=== PATIENT | female | born 1975 | race Caucasian/White ===

== ENCOUNTER 2021-09-21 01:10 | Day surgery (SDC) | payer MEDICARE, MEDICAID, SELFPAY ==
--- NOTE | 2021-09-01 14:56 | SUR.PREOP ---
called the patient and message left regarding calling [facility] to coordinate her prep for her upcoming procedure.
--- NOTE | 2021-09-03 15:54 | SUR.PREOP ---
Called patient left voicemail to have her call me to discuss her prep for her upcoming procedure.
[2021-09-04 14:33] VITALS: BMI 31.3
[2021-09-21 10:45] VITALS: BP 127/66; PULSE 69; RESP 18; TEMP 36.6; O2SAT 100; BMI 31.2
--- NOTE | 2021-09-21 10:54 | PM.HPGS ---
History of Present Illness History of Present Illness Consent: Risks, benefits, and alternatives have been discussed and questions answered. Patient agrees to proceed with procedure. Chief complaint: neoplasm screening Narrative: Ev Mireles is a 45 year old female referred for colon cancer screening. Review of Systems Review of Systems: All systems reviewed & are unremarkable except as noted in HPI and below PMFSH Social History Social History Smoking packs per day: 0.5 Smoking cigarettes per day: 10.0 Years smoked: 8 Smoking pack-years: 4.00 Smoking status: Former smoker Tobacco type: cigarettes Alcohol intake: current Substance use: current Substance use type: marijuana Other substance usage details: MEDICAL CARD-DAILY INHALATION Spiritual care concerns: No Meds Home Medications and Allergies Home Medications Medication Instructions Recorded Confirmed Type albuterol sulfate 90 mcg/actuation 2 inh inhalation PRN PRN Shortness 09/04/21 09/04/21 History aerosol inhaler (Ventolin HFA) Of Breath Allergies Allergy/AdvReac Type Severity Reaction Status Date / Time No Known Allergies Allergy Verified 09/21/21 10:44 Vital Signs Vital Signs - 24 hr 09/21/21 10:45 Temperature 36.6 C Pulse Rate 69 Respiratory Rate 18 Blood Pressure 127/66 Pulse Oximetry 100 Oxygen Delivery Room Air Exam Resp: Auscultation: clear to auscultation bilaterally Cardio: Rate: regular rate Rhythm: regular rhythm GI: GI Palp: Yes Soft to palpation and No Tenderness to palpation present (GI) Assessment and Plan Assessment and plan (1) Colon cancer screening: Code(s): Z12.11 - Encounter for screening for malignant neoplasm of colon Status: Acute Assessment and Plan: Colonoscopy with possible biopsy or polypectomy or cautery or injection of substances.
[2021-09-21] MEDS: LACTATED RINGERS 1,000 ML 150 ML IV CONT (10:58)
--- NOTE | 2021-09-21 11:13 | P.PNAN_ITS ---
Anes - Initial Pre Proc Eval Procedure: Operation Date: 09/21/21 11:30 Proposed Procedures p Screening Colonoscopy - Donis Mcmahon MD Date/Time: 09/21/21 11:13 Surgeon: Donis Mcmahon MD Pre Op Diagnosis: neoplasm screening Patient Data Age: 45 Gender: F Height: 1.65 m Weight: 85.1 kg Last Vital Signs Temp 97.8 F 09/21/21 10:45 Pulse 69 09/21/21 10:45 Resp 18 09/21/21 10:45 BP 127/66 09/21/21 10:45 Pulse Ox 100 09/21/21 10:45 O2 Del Method Room Air 09/21/21 10:45 Allergies Allergy/AdvReac Type Severity Reaction Status Date / Time No Known Allergies Allergy Verified 09/21/21 10:44 Home Medications Medication Instructions Recorded Confirmed Type albuterol sulfate 90 mcg/actuation 2 inh inhalation PRN PRN Shortness 09/04/21 09/04/21 History aerosol inhaler (Ventolin HFA) Of Breath Patient hx anesthesia problems: none Family hx anesthesia problems: none Results Review: All pre-operative results and documents have been reviewed as part of the pre- operative evaluation. [facility] Social History Social History Smoking packs per day: 0.5 Smoking cigarettes per day: 10.0 Years smoked: 8 Smoking pack-years: 4.00 Smoking status: Former smoker Tobacco type: cigarettes Alcohol intake: current Substance use: current Substance use type: marijuana Other substance usage details: MEDICAL CARD-DAILY INHALATION Spiritual care concerns: No Anes - Eval Final PreProcedure Day of Procedure 09/21/21 11:13 Patient weight: overweight Heart: regular rate and rhythm Lungs: clear to auscultation Airway: Mallampati scale class II Neurological: alert and oriented Last oral intake: >/= 8 hours ASA classification: II Emergent: no Anesthetic plan: proceed Anesthesia type and monitoring: general GIVS and standard monitoring Results Review: All pre-operative results and documents have been reviewed as part of the pre- operative evaluation. Informed Consent: The patient's anesthetic plan and its attendant risks and benefits were discussed with the patient/family/POA. Questions were solicited and answers provided to the satisfaction of the patient/family/POA.
[2021-09-21 12:23] VITALS: BP 123/72; PULSE 63; RESP 28; O2SAT 100
[2021-09-21 12:33] VITALS: BP 123/72; PULSE 63; RESP 21; O2SAT 100
[2021-09-21 12:43] VITALS: BP 149/77; PULSE 57; RESP 17; O2SAT 100
== END 2021-09-21 12:50 | disposition home or self-care (01) ==
PROVIDERS: PCP Family Medicine; Visit Provider Internal Medicine Gastroenterology
PROC: 0DJD8ZZ Inspection of Lower Intestinal Tract, Via Natural or Artificial Opening Endoscopic (ICD-10-PCS; CPT 45378; principal; 2021-09-21 11:30)
DX: Z12.11 Encounter for screening for malignant neoplasm of colon (principal); D12.8 Benign neoplasm of rectum; Z79.51 Long term (current) use of inhaled steroids; Z87.891 Personal history of nicotine dependence; F12.90 Cannabis use, unspecified, uncomplicated
CPT/HCPCS: 45381; 45385; 88305; J2001; J2704; J7120